=== PATIENT | male | born 1960 | race Caucasian/White ===

== ENCOUNTER → 2023-12-18 06:30 | Day surgery (SDC) | payer MEDICARE, OTHER, SELFPAY ==
[2023-12-13 10:24] VITALS: BMI 26.3
[2023-12-18] VITALS (12 sets, daily range): BP systolic 127–155; BP diastolic 74–92; BMI 26.3; BMI 27.7
[2023-12-18 08:32] LABS: Glucose - Point of Care 115 mg/dl (70-99)
[2023-12-18] MEDS: CYSVIEW KIT 100 MG INTRAVES (09:03)
[2023-12-18] MEDS: NORMOSOL-R 1000 IV (09:04)
[2023-12-18] MEDS: LOPRESSOR 50 MG PO (09:15)
[2023-12-18 10:27] LABS: Glucose - Point of Care 121 mg/dl (70-99)
[2023-12-18] MEDS: Pyridium 200 MG PO (11:02)
== END ==
LOC: SDS 06:30
PROVIDERS: ATTENDING PHYSICIAN Urology; FAMILY PHYSICIAN Family Medicine
DX: N30.10 Interstitial cystitis (chronic) without hematuria (principal); N39.41 Urge incontinence
CPT/HCPCS: 52287; 82962; A9589; J0585

== ENCOUNTER 2024-05-20 06:22 | Day surgery (SDC) | payer MEDICARE, OTHER, SELFPAY ==
[2024-05-20] VITALS (9 sets, daily range): BP systolic 144–166; BP diastolic 82–89; BMI 27.2
[2024-05-20 06:46] LABS: Glucose - Point of Care 106 mg/dl (70-99)
[2024-05-20 08:14] LABS: Glucose - Point of Care 109 mg/dl (70-99)
[2024-05-20] MEDS: Pyridium 200 MG PO (08:44)
== END 2024-05-20 10:00 | disposition home or self-care (01) ==
LOC: SDS 06:22
PROVIDERS: ATTENDING PHYSICIAN Urology
PROC: 0TJB8ZZ Inspection of Bladder, Via Natural or Artificial Opening Endoscopic (ICD-10-PCS; 2024-05-20)
PROC: 0VJ Male Reproductive System, Inspection (ICD-10-PCS; 2024-05-20)
PROC: 3E0K8GC Introduction of Other Therapeutic Substance into Genitourinary Tract, Via Natural or Artificial Opening Endoscopic (ICD-10-PCS; 2024-05-20)
DX: N39.41 Urge incontinence (principal); N30.10 Interstitial cystitis (chronic) without hematuria; Z12.5 Encounter for screening for malignant neoplasm of prostate
CPT/HCPCS: 52287; 52260; G0102; 82962; J0585